=== PATIENT | female | born 1955 | race Caucasian/White ===

== ENCOUNTER 2022-05-16 09:41 | Observation (INO) | payer MEDICARE, OTHER, SELFPAY ==
[2022-05-16] VITALS (30 sets, daily range): BP systolic 73–139; BP diastolic 38–84; PULSE 77–92; RESP 14–27; TEMP 35.8–36.6; O2SAT 95–100; BMI 35.2
--- NOTE | ~2022-05-16 | CT_ITS ---
CT Abdomen and Pelvis with contrast. History: Renal infarct, colitis. Spiral CT of the abdomen and pelvis was performed after the administration of intravenous contrast. 1 00 cc of Omnipaque 350 was administered intravenously without complication. Dose reduction technique was used on this scan by utilizing automated exposure control and iterative reconstruction technique. The dose-length product (DLP) was 1210.32 mGy-cm. 05/16/2022 Findings: Scans through the lung bases demonstrate mild atelectatic change. The liver, spleen, pancreas, gallbladder, adrenals and right kidney are within normal limits. There i s an ill-defined hypodense area in the left renal cortex, less well-defined than on prior exam. No ev idence of aortic aneurysm. No lymphadenopathy is seen. There is no evidence of bowel obstruction. There is probable mild wall thickening and pericolonic inf lammatory stranding involving the proximal descending colon. No abscess or free air. Images through the pelvis were performed. Urinary bladder unremarkable. No adnexal mass evident. No a scites is seen. Impression: Findings consistent with infectious/inflammatory colitis involving the proximal descending colon. Hypodense area in the left kidney is more ill-defined as compared to prior exam, which could reflect evolving infarct versus possibly pyonephritis. Reviewed, dictated and finalized at [facility]. [employer] Impression: Findings consistent with infectious/inflammatory colitis involving the proximal descending colon. Hypodense area in the left kidney is more ill-defined as compared to prior exam , which could reflect evolving infarct versus possibly pyonephritis.
--- NOTE | ~2022-05-16 | CT_ITS ---
EXAMINATION: CT abdomen pelvis w con DATE: 05/16/2022 14:32 INDICATION: Generalized abdominal pain. Nausea and vomiting. Diarrhea. TECHNIQUE: Computed tomography (CT) of the abdomen and pelvis was performed with 100 mL Omnipaque 350 intravenous contrast. Automated exposure control and iterative reconstruction technique were employe d. The dose-length product was 1259.68 mGy-cm. COMPARISON: None. FINDINGS: The visualized portions of the lung bases demonstrate mild atelectasis. No pleural effusion . The heart size is normal. No pericardial effusion. There is a small sliding hiatal hernia. There ar e cysts in the liver measuring up to 16 mm. The gallbladder is distended. There is a 7 mm hypodense m ass in the spleen, likely a benign mass such as granulomatous disease. The pancreas and adrenal gland s are normal. There are cysts in the kidneys measuring up to 3.5 cm on the right. There is a striated nephrogram involving the upper pole and mid zone of left kidney. 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 There is no significant stenosis of superior mesenteric artery, the renal arteries, or inferior mesenteric artery. The bladder is distended. A rectal tube is noted. There is wall thickening from t ransverse colon to sigmoid colon. The appendix is not visualized. There is trace pelvic ascites. Ther e are no pathologically enlarged lymph nodes. There is an umbilical hernia containing fat. There is m ild thoracic spondylosis and moderate lumbar spondylosis. IMPRESSION: 1. Striated nephrogram in left kidney, which may be secondary to infarcts or less likely pyelonephrit is. 2. Wall thickening from transverse colon to the sigmoid, consistent with colitis such as infectious c olitis or ischemic colitis. Reviewed, dictated and finalized at location [facility]. [facility]OR IMPRESSION: 1. Striated nephrogram in left kidney, which may be secondary to infarcts or le ss likely pyelonephritis. 2. Wall thickening from transverse colon to the sigmoid, consistent with coliti s such as infectious colitis or ischemic colitis.
[2022-05-16] MEDS: SODIUM CHLORIDE 0.9% IV 2,000 ML 999 ML IV CONT (10:01)
--- NOTE | 2022-05-16 10:32 | ECG_ITS ---
Measurements Intervals [place] Rate: 78 P: 64 W[place]: 204 QRS: 7 QRSD: 85 T: 9 QT: 447 QTc: 511 Interpretive Statements SINUS RHYTHM PROLONGED QT INTERVAL ABNORMAL ECG NO PREVIOUS ECG AVAILABLE FOR COMPARISON Electronically Signed On 05-16-2022 12:49:38 TRANSCRIPT EVALUATOR by Micah Barreto M.D.
[2022-05-16] MEDS: ONDANSETRON INJ 4 MG/2 ML VIAL IV PUSH ×2 (10:37→15:18)
[2022-05-16 11:09] LABS: Basophils Absolute Auto 0.1 K/mm3 (0.0-0.1); Basophils Percent Auto 0.3 % (0.2-1.2); Eosinophils Percent Auto 0.2 % (0-4.4); Hematocrit 46.2 % (37.0-47.0); Hemoglobin 15.4 g/dL (12.0-15.0); Immature Granulocyte Absolute 0.16 K/mm3 (0.00-0.031); Immature Granulocyte Percent A 0.9 % (0-0.5); Lymphocytes Absolute Auto 1.82 K/mm3 (0.9-3.2); Lymphocytes Percent Auto 10.6 % (18.3-44.2); Mean Corpuscular HGB Conc 33.3 g/dl (32-36); Mean Corpuscular Hemoglobin 31.3 pg (26-34); Mean Corpuscular Volume 93.9 fl (80-100); Mean Platelet Volume 9.1 fl (7.4-10.4); Monocytes Absolute Auto 1.2 K/mm3 (0.1-0.6); Monocytes Percent Auto 6.8 % (2.6-8.5); Neutrophils Absolute Auto 13.9 K/mm3 (1.3-6.7); Neutrophils Percent Auto 81.2 % (45.5-73.1); Platelet Count Result 342 k/mm3 (150-375); Red Blood Count 4.92 M/mm3 (4.2-5.4); Red Cell Distribution Width 13.2 % (11.5-14.5); White Blood Count 17.1 K/mm3 (4.5-10.0)
[2022-05-16 11:29] LABS: Alanine Aminotransferase 20 U/L (6-35); Albumin Level 3.6 g/dL (3.5-5.1); Alkaline Phosphatase 63 U/L (38-126); Anion Gap 8 mmol/L (8-16); Aspartate Amino Transferase 30 U/L (14-36); Bilirubin,Total 1.2 mg/dL (0.2-1.3); Blood Urea Nitrogen 9 mg/dL (7-17); Carbon Dioxide 20 mmol/L (22-30); Chloride 102 mmol/L (98-107); Estimated CRCL calculation 70 ml/min; Estimated Glomerular Filt Rate > 60; Glucose 147 mg/dL (65-110); Lipase 68 U/L (23-300); Potassium 3.6 mmol/L (3.4-5.0); Sodium 130 mmol/L (137-145)
[2022-05-16 12:02] LABS: Toxigenic C. Diff NEGATIVE (NEGATIVE)
[2022-05-16 12:07] LABS: Lactic Acid Reflex 2.8 mmol/L (0.7-2.0)
[2022-05-16] MEDS: DICYCLOMINE HCL INJ 20 MG/2 ML VIAL IM (12:35)
--- NOTE | 2022-05-16 14:05 | ED.NAVMDI ---
HPI - Nausea/Vomiting/Diarrhea General Chief complaint: Nausea/Vomiting/Diarrhea Stated complaint: N/V/D Time Seen by Provider: 05/16/22 09:54 History of Present Illness HPI Narrative: Patient is a 66-year-old female who presents ER with diarrhea. Sudden onset this morning. Has had multiple episodes of diarrhea. Became profoundly fatigued and ended up having a syncopal episode while on the toilet. called EMS. Brought in by EMS with low blood pressure. Patient continues to have liquid stool that she cannot control. She has diffuse abdominal pain and aching. She is keenly alert and oriented and is able to provide history. Denies any recent antibiotic usage. No known sick contacts. Related Data Home Medications Medication Instructions Recorded Confirmed citalopram 40 mg tablet 40 mg PO DAILY 05/16/22 05/16/22 hydrochlorothiazide 12.5 mg capsule 12.5 mg PO DAILY 05/16/22 05/16/22 levothyroxine 100 mcg tablet 100 mcg PO DAILY 05/16/22 05/16/22 (Synthroid) lisinopril 40 mg tablet 40 mg PO DAILY 05/16/22 05/16/22 omeprazole 40 mg capsule,delayed 40 mg PO DAILY 05/16/22 05/16/22 release oxybutynin chloride 10 mg 10 mg PO DAILY 05/16/22 05/16/22 tablet,extended release 24 hr Allergies Allergy/AdvReac Type Severity Reaction Status Date / Time No Known Allergies Allergy Verified 05/16/22 10:06 Review of Systems Review of Systems: All systems reviewed & are unremarkable except as noted in HPI and below Constitutional: Constitutional: Denies chills, Reports fatigue and Denies fever(s) ENT: Denies nasal congestion and Denies sore throat Cardiovascular: Cardiovascular: Denies chest pain, Denies rapid heart rate and Denies radiating jaw, neck or arm pain Respiratory: Respiratory: Denies cough and Denies dyspnea Gastrointestinal: Gastrointestinal: Reports abdominal pain, Reports diarrhea, Denies nausea and Denies vomiting PMF Past Medical History Medical History (Updated 05/16/22 @ 19:52 by Angus Glover MD) Depression GERD (gastroesophageal reflux disease) Hypertension Hypothyroidism Family History Family History (Updated 05/16/22 @ 17:29 by Jayda Garcia RN) Mother Abdominal aneurysm, ruptured Father Heart attack Sibling Heart attack Sibling Parkinson disease Social History Social History Smoking status: Former smoker Tobacco type: cigarettes Alcohol intake: current Drinks per week: 12 Substance use: never Lack of Transportation: No Lack of Food: Never True Current Housing: I Have Housing Concerned About Future Housing: No Difficulty Paying Gas/Electric Bills: No Difficulty Paying for Meds: No Currently Unemployed: No Education: Decline to Answer Difficulty w/ Childcare or Family Care: No Spiritual care concerns: No Exam Narrative: GENERAL: Ill-appearing, obese, and in distress. HEAD: Normocephalic, atraumatic. EYES: PERRL and EOMI. ENT: Mucous membranes moist. CHEST: Clear to auscultation. No respiratory distress. HEART: Regular rate and rhythm. Normal peripheral pulses. ABDOMEN: Soft, diffuse tenderness without guarding, hyperactive bowel sounds.. EXTREMITIES: Normal range of motion. No edema. SKIN: Warm, dry, no rash. NEURO: Alert and oriented x3. PSYCH: Normal mood and affect. Course Course Emergency Course: 1405: Patient requiring fecal containment device due to persistent diarrhea. Patient still having abdominal discomfort. C. difficile negative. We will perform a CT scan of the abdomen pelvis. Patient will require admission to the hospital. Patient aggressively hydrated and proved to be fluid responsive. 1438: Excepted for admission by hospitalist service. GI was also consulted. Patient be started on IV Zosyn for infection. 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 Patient does not seem to have pain out of proportion to exam. Suspect she could have some ischemia related to a lo
[2022-05-16] MEDS: MORPHINE SULFATE (*CRX) 4 MG/ML INJ IV PUSH (14:40)
[2022-05-16 14:53] LABS: Reflex Lactic Acid Yes or No Add Lactic
[2022-05-16] MEDS: LACTATED RINGERS 1,000 ML 125 ML IV CONT ×2 (15:18→20:56)
[2022-05-16 15:41] LABS: Appearance Urine Clear (Clear); Bilirubin Urine 1+ (Negative); Blood Urine Trace-intact (Negative); Color Urine Dark Yellow (Yellow); Glucose Urine UA Negative (Negative); Ketones Urine 1+ mg/dL (Negative); Leukocyte Esterase Ur Negative LEU/UL (Negative); Nitrate Urine Negative (Negative); Protein Urine 1+ mg/dL (Negative); Specific Grav Ur 1.015 (1.001-1.035); pH Urine 7.5 (5.0-9.0)
[2022-05-16 15:46] LABS: Lactic Acid 1.7 mmol/L (0.7-2.0)
[2022-05-16 15:49] LABS: Bacteria Urine Trace /hpf; Mucus Urine Rare /lpf; RBC Urine 0-2 /hpf (0-2); Squamous Epithelial Cell Urine Rare /hpf (Few); WBC Urine 0-3 /hpf
[2022-05-16 15:56] LABS: Add Urine Microscopic? YES
--- NOTE | 2022-05-16 16:00 | PM.IMHP ---
H&P: HPI History of Present Illness Date/Time: 05/16/22 16:00 Chief Complaint: Diarrhea. Narrative: This is a very pleasant 66-year-old female with hypertension, hypothyroidism, gastroesophageal reflux disease, and depression who presented to the emergency department via EMS from home for evaluation of diarrhea. Patient provides the following history. She felt just fine when she got out of bed this morning and she made her sausage and eggs for breakfast. She does not usually eat breakfast but had 2 cups of coffee. Not long thereafter she developed diffuse, severe abdominal cramping and she rushed to the bathroom where she had profuse diarrhea for upwards of 30 minutes. With all of the diarrhea she started to feel weak, lightheaded, and dizzy and she called out for her who came into the bathroom and caught her as she lost consciousness briefly. She was also feeling extremely nauseated and sweaty. She continued to have large amounts of diarrhea in the ED and a fecal management system has since been inserted. She denies recent travel, antibiotic use, and sick contacts. She cooked hamburger couple of nights ago but she is always very careful about washing her hands. Blood pressure was as low as 73/38 in the emergency department but they have responded nicely to IV fluid rehydration. She has been afebrile since arrival. Pertinent labs included WBC count of 17.1, hemoglobin 15.4, sodium 130, carbon dioxide 20, lactic acid 2.8, and normal LFTs. CT of the abdomen and pelvis showed striated nephrogram in the left kidney which may be secondary to infarct or less likely pyelonephritis as well as wall thickening from the transverse colon to the sigmoid consistent with colitis such as infectious or ischemic colitis. She has not had any urinary symptoms and she denies back pain and there is no CVA tenderness on exam. She has not noticed any blood in the stool. She has no known history of cardiac dysrhythmia but admits that over the last 8 months or so she has had 1 to 2 episodes a week of brief, transient palpitations which seem to last less than a minute and occur more frequently with rest and lying in bed at night. At the time my evaluation she is feeling better with IV fluids. She has been started on antibiotics for possible infectious colitis and she is being admitted in this setting. Review of Systems Review of Systems: Twelve systems were reviewed. No fever. She denies cold and flu symptoms. She has not had exertional chest pain or shortness of breath. No melena or hematochezia. She denies dysuria. No neurologic symptoms. Except as documented, all other systems were reviewed and are negative. [facility] Past Medical History Medical History (Updated 05/16/22 @ 21:50 by Yamel Myers PA-C) Depression Gastroesophageal reflux disease Hypertension Hypothyroidism Overactive bladder Surgical History Surgical History (Updated 05/16/22 @ 21:47 by Yamel Myers PA-C) No history of previous surgery Family History Family History Mother Abdominal aneurysm, ruptured Father Heart attack Sibling Heart attack Sibling Parkinson disease Social History Social History (Updated 05/16/22 @ 21:48 by Yamel Myers PA-C) Social History: Surrogate medical decision maker: Rubin Rodriguez, spouse. Code status: Full code. Years smoked: 10 Smoking status: Former smoker Tobacco type: cigarettes Alcohol intake: current Drinks per week: 12 Alcohol use details: 1 to 2 mixed drinks a night (equivalent of 2 shots of vodka). Substance use: never Lack of Transportation: No Lack of Food: Never True Current Housing: I Have Housing Concerned About Future Housing: No Difficulty Paying Gas/Electric Bills: No Difficulty Paying for Meds: No Currently Unemployed: No Education: Decline to Answer Difficulty w/ Childcare or Family Care: No
[2022-05-16 22:56] LABS: Anion Gap 4 mmol/L (8-16); Blood Urea Nitrogen 8 mg/dL (7-17); Carbon Dioxide 26 mmol/L (22-30); Chloride 99 mmol/L (98-107); Estimated CRCL calculation 85 ml/min; Estimated Glomerular Filt Rate > 60; Glucose 114 mg/dL (65-110); Magnesium 1.8 mg/dL (1.6-2.3); Potassium 3.6 mmol/L (3.4-5.0); Sodium 129 mmol/L (137-145)
[2022-05-17] VITALS (20 sets, daily range): BP systolic 115–155; BP diastolic 65–84; PULSE 60–90; RESP 18–22; TEMP 36.2–36.8; O2SAT 95–99
[2022-05-17 00:02] LABS: Influenza A QL RT-PCR Negative (Negative); Influenza B QL RT-PCR Negative (Negative); SARS-CoV-2 RNA PCR Negative
[2022-05-17 04:33] LABS: Hematocrit 35.7 % (37.0-47.0); Hemoglobin 12.1 g/dL (12.0-15.0); Mean Corpuscular HGB Conc 33.9 g/dl (32-36); Mean Corpuscular Hemoglobin 31.7 pg (26-34); Mean Corpuscular Volume 93.5 fl (80-100); Mean Platelet Volume 8.6 fl (7.4-10.4); Platelet Count Result 262 k/mm3 (150-375); Red Blood Count 3.82 M/mm3 (4.2-5.4); Red Cell Distribution Width 13.4 % (11.5-14.5); White Blood Count 8.2 K/mm3 (4.5-10.0)
[2022-05-17 04:45] LABS: Alanine Aminotransferase 25 U/L (6-35); Albumin Level 3.4 g/dL (3.5-5.1); Alkaline Phosphatase 46 U/L (38-126); Anion Gap 3 mmol/L (8-16); Aspartate Amino Transferase 33 U/L (14-36); Bilirubin,Total 0.9 mg/dL (0.2-1.3); Blood Urea Nitrogen 6 mg/dL (7-17); Calcium 7.6 mg/dL (8.4-10.2); Carbon Dioxide 26 mmol/L (22-30); Chloride 103 mmol/L (98-107); Estimated CRCL calculation 85 ml/min; Estimated Glomerular Filt Rate > 60; Glucose 98 mg/dL (65-110); Magnesium 1.9 mg/dL (1.6-2.3); Potassium 3.6 mmol/L (3.4-5.0); Sodium 132 mmol/L (137-145)
[2022-05-17] MEDS: LEVOTHYROXINE SODIUM 100 MCG TABLET PO (06:15)
[2022-05-17] MEDS: CITALOPRAM HYDROBROMIDE 20 MG TABLET 40 MG PO (10:09)
[2022-05-17] MEDS: PANTOPRAZOLE 40 MG TABLET PO (10:09)
[2022-05-17] MEDS: SODIUM CHLORIDE 0.9% IV 1,000 ML 100 ML IV CONT ×3 (10:58→21:14)
--- NOTE | 2022-05-17 11:45 | P.PNIM_ITS ---
Progress Note: A&P Assessment and Plan (1) Colitis: Code(s): K52.9 - Noninfective gastroenteritis and colitis, unspecified Status: Acute Assessment and Plan: Presented with abdominal pain and profuse diarrhea ongoing for 1 day * CT of the abdomen and pelvis showed colitis from the transverse to the sigmoid colon. * Infectious colitis most likely etiology. Continue IV Zosyn * Stool cultures are pending * C diff PCR negative * Continue with supportive care * Continue gentle IV fluid rehydration until patient is better tolerating diet * Ischemic colitis considered given findings of celiac stenosis, however less likely. Lactic acid minimally elevated (2.8) but promptly normalized with rehydration. No significant pain. No significant stenosis was noted of the SMA, renal arteries, or inferior mesenteric artery. * No findings to suspect inflammatory colitis and patient is improving with IV antibiotics * Consider GI consultation if worsening (2) Sepsis: Code(s): A41.9 - Sepsis, unspecified organism Status: Acute Assessment and Plan: Patient met sepsis criteria on presentation with leukocytosis (17.0), tachypnea, relative hypotension, elevated lactic acid level and suspected source of infection of colitis. * Improving. WBC has normalized and patient is not tachypneic * Blood pressures have improved with rehydration. See below * Will obtain blood cultures (not obtained prior to initiation of antibiotics) * Blood cultures are pending * Continue with IV antibiotics as above (3) Hypotension: Code(s): I95.9 - Hypotension, unspecified Status: Acute Assessment and Plan: Secondary to volume loss and sepsis * Blood pressure was as low as 73/38 on presentation but responded well to IV fluid rehydration * BP is now in the 140s systolic and maintaining * Lisinopril and hydrochlorothiazide placed on hold * Will monitor today and if BP becomes elevated will resume. If remaining stable, plan to resume p.o. antihypertensives tomorrow morning (4) Dehydration: Code(s): E86.0 - Dehydration Status: Acute Assessment and Plan: Secondary to hypovolemia from GI losses * Patient received IV fluid resuscitation with improvement * Continue with gentle IV fluids today until better tolerating diet (5) Abnormal finding of kidney: Code(s): R39.9 - Unspecified symptoms and signs involving the genitourinary system Status: Acute Assessment and Plan: CT showed a striated nephrogram in the left kidney which may represent infarcts or pyelonephritis. * Pyelonephritis seems less likely given exam findings and lack of urinary symptoms. No CVA tenderness on exam. No flank pain. UA unremarkable. * Renal infarct is a possibility, however no obvious symptoms. No significant stenosis of renal arteries evident on CT. Patient does complain of palpitations, and is being evaluated for atrial fibrillation which could contribute to renal infarct. However patient remains in sinus rhythm and no findings of AFib as of yet. See plan as below. * Will plan for repeat CT of the abdomen and pelvis prior to discharge to evaluate. * Will plan to repeat UA in 24 hours to assess for infection or blood in the urine. * Hold on anticoagulation at this time (6) Palpitations: Code(s): R00.2 - Palpitations Status: Acute Assessment and Plan: Patient reported complaints of intermittent brief and self-limiting palpitations ongoing for several months to admitting provider * Denied palpitations during my encounte
--- NOTE | 2022-05-17 11:45 | PM.IMPN ---
Progress Note: A&P Assessment and Plan (1) Colitis: Code(s): K52.9 - Noninfective gastroenteritis and colitis, unspecified Status: Acute Assessment and Plan: Presented with abdominal pain and profuse diarrhea ongoing for [address] of the abdomen and pelvis showed colitis from the transverse to the sigmoid colon. Infectious colitis most likely etiology. Continue IV Zosyn Stool cultures are pending C diff PCR negative Continue with supportive care Continue gentle IV fluid rehydration until patient is better tolerating diet Ischemic colitis considered given findings of celiac stenosis, however less likely. Lactic acid minimally elevated (2.8) but promptly normalized with rehydration. No significant pain. No significant stenosis was noted of the SMA, renal arteries, or inferior mesenteric artery. No findings to suspect inflammatory colitis and patient is improving with IV antibiotics Consider GI consultation if worsening (2) Sepsis: Code(s): A41.9 - Sepsis, unspecified organism Status: Acute Assessment and Plan: Patient met sepsis criteria on presentation with leukocytosis (17.0), tachypnea, relative hypotension, elevated lactic acid level and suspected source of infection of colitis. Improving. WBC has normalized and patient is not tachypneic Blood pressures have improved with rehydration. See below Will obtain blood cultures (not obtained prior to initiation of antibiotics) Blood cultures are pending Continue with IV antibiotics as above (3) Hypotension: Code(s): I95.9 - Hypotension, unspecified Status: Acute Assessment and Plan: Secondary to volume loss and sepsis Blood pressure was as low as 73/38 on presentation but responded well to IV fluid rehydration BP is now in the 140s systolic and maintaining Lisinopril and hydrochlorothiazide placed on hold Will monitor today and if BP becomes elevated will resume. If remaining stable, plan to resume p.o. antihypertensives tomorrow morning (4) Dehydration: Code(s): E86.0 - Dehydration Status: Acute Assessment and Plan: Secondary to hypovolemia from GI losses Patient received IV fluid resuscitation with improvement Continue with gentle IV fluids today until better tolerating diet (5) Abnormal finding of kidney: Code(s): R39.9 - Unspecified symptoms and signs involving the genitourinary system Status: Acute Assessment and Plan: CT showed a striated nephrogram in the left kidney which may represent infarcts or pyelonephritis. Pyelonephritis seems less likely given exam findings and lack of urinary symptoms. No CVA tenderness on exam. No flank pain. UA unremarkable. Renal infarct is a possibility, however no obvious symptoms. No significant stenosis of renal arteries evident on CT. Patient does complain of palpitations, and is being evaluated for atrial fibrillation which could contribute to renal infarct. However patient remains in sinus rhythm and no findings of AFib as of yet. See plan as below. Will plan for repeat CT of the abdomen and pelvis prior to discharge to evaluate. Will plan to repeat UA in 24 hours to assess for infection or blood in the urine. Hold on anticoagulation at this time (6) Palpitations: Code(s): R00.2 - Palpitations Status: Acute Assessment and Plan: Patient reported complaints of intermittent brief and self-limiting palpitations ongoing for several months to admitting provider Denied palpitations during my encounter today Differential diagnosis includes paroxysmal atrial fibrillation Patient has been monitored on telemetry and maintains normal sinus rhythm Echocardiogram is pending Consider discharge with 30 day event monitor if no findings from above workup (7) Hypertension: Code(s): I10 - Essential (primary) hypertension Status: Chronic Assessment and Plan: Patient with history
[2022-05-17] MEDS: ACETAMINOPHEN 325 MG TABLET 650 MG PO (21:10)
--- NOTE | 2022-05-17 21:58 | ECHO_ITS ---
Patient Info Name: Nikita Rodriguez Age: 66 years : 1955 Gender: Female Ht: 67 in Wt: 224 lbs BSA: 2.23 m2 HR: 71 bpm BP: 129 / 65 mmHg Heart Rhythm: Sinus Rhythm Technical Quality: Fair Exam Date: 05/17/2022 7:57 AM Exam Location: [facility] Patient Status: Outpatient Admit Date: 05/16/2022 Staff Ordering Physician: Yamel Myers PA-C Environmental Law Professor: Asha Conrad RDCS Attending Provider: Gini Velasco PA-C Referring Physician: Louis KO; Exam Type: CA echo doppler color flow Study Info Indications I10 - Essential (primary) hypertension - possible renal infarct R00.2 - Palpitations Complete two-dimensional, color flow and Doppler transthoracic echocardiogram is performed. Summary 1. Complete two-dimensional, color flow and Doppler transthoracic echocardiogram is performed. 2. Left ventricular chamber dimension is normal. 3. Left ventricular systolic function is normal, estimated at 65-70%. 4. There is no increased left ventricular wall thickness. 5. The left ventricular diastolic function is grade I diastolic dysfunction. 6. Left atrial chamber dimension is mildly enlarged. 7. There is mild mitral valve regurgitation. 8. There is mild tricuspid valve regurgitation. Left Ventricle Left ventricular chamber dimension is normal. Left ventricular systolic function is normal, estimated at 65-70%. There is no increased left ventricular wall thickness. The left ventricular diastolic function is grade I diastolic dysfunction. Right Ventricle Right ventricular chamber dimension is normal. Right ventricular systolic function is normal. Left Atria Left atrial chamber dimension is mildly enlarged. Right Atria Right atrial chamber dimension is normal. Atrial Septum Intact interatrial septum visualized by color flow imaging. Aortic Valve The aortic valve is trileaflet. There is mild aortic valve sclerosis. There is no aortic valve stenosis. There is trace aortic valve regurgitation. Pulmonic Valve The pulmonic valve is normal. There is no pulmonic valve stenosis. There is trace pulmonic regurgitation. Mitral Valve The mitral valve has normal leaflets. There is no mitral valve stenosis. There is mild mitral valve regurgitation. Tricuspid Valve The tricuspid valve leaflets are normal. There is no significant tricuspid valve stenosis. There is mild tricuspid valve regurgitation. No pulmonary hypertension, estimated pulmonary arterial systolic pressure is 31 mmHg. Pericardium/Pleural The pericardium appears normal. There is no pericardial effusion. Inferior Vena Cava Normal inferior vena cava with >50% collapse upon inspiration consistent with normal right atrial pressure, 10 mmHg. Aorta The aortic root size at the sinus of Valsalva is normal. The prox ascending aorta size is normal. Left Ventricular Outflow Tract Name Value Normal LVOT 2D LVOT Diameter 2.0 cm LVOT Doppler LVOT Peak Gradient 4 mmHg LVOT Mean Gradient 2 mmHg LVOT VTI 23
[2022-05-18] VITALS (8 sets, daily range): BP systolic 121–152; BP diastolic 71–82; PULSE 64–76; RESP 16–18; TEMP 36.3–36.7; O2SAT 97–100
[2022-05-18 05:25] LABS: Alanine Aminotransferase 32 U/L (6-35); Albumin Level 3.6 g/dL (3.5-5.1); Alkaline Phosphatase 46 U/L (38-126); Anion Gap 4 mmol/L (8-16); Aspartate Amino Transferase 36 U/L (14-36); Bilirubin,Total 0.9 mg/dL (0.2-1.3); Blood Urea Nitrogen 2 mg/dL (7-17); Calcium 7.8 mg/dL (8.4-10.2); Carbon Dioxide 28 mmol/L (22-30); Chloride 105 mmol/L (98-107); Estimated CRCL calculation 97 ml/min; Estimated Glomerular Filt Rate > 60; Glucose 91 mg/dL (65-110); Potassium 3.2 mmol/L (3.4-5.0); Sodium 137 mmol/L (137-145)
[2022-05-18] MEDS: LEVOTHYROXINE SODIUM 100 MCG TABLET PO (05:33)
[2022-05-18] MEDS: lisinopriL 20 MG TABLET 40 MG PO (08:51)
[2022-05-18] MEDS: CITALOPRAM HYDROBROMIDE 20 MG TABLET 40 MG PO (08:51)
[2022-05-18] MEDS: PANTOPRAZOLE 40 MG TABLET PO (08:52)
[2022-05-18] MEDS: hydroCHLOROthiazide 12.5 MG CAPSULE PO (08:52)
[2022-05-18 12:15] LABS: Lactate Dehydrogenase 271 U/L (120-246)
[2022-05-18 13:49] LABS: Appearance Urine Clear (Clear); Bilirubin Urine Negative (Negative); Blood Urine Trace-lysed (Negative); Color Urine Yellow (Yellow); Glucose Urine UA Negative (Negative); Ketones Urine Negative (Negative); Leukocyte Esterase Ur Negative LEU/UL (Negative); Nitrate Urine Negative (Negative); Protein Urine Negative (Negative); Urobilinogen Urine 0.2 mg/dL (<2.0)
[2022-05-18 13:53] LABS: Mucus Urine Rare /lpf; RBC Urine 0-2 /hpf (0-2); WBC Urine 0-3 /hpf
[2022-05-18 14:02] LABS: Add Urine Microscopic? YES
--- NOTE | 2022-05-18 14:26 | PM.DS ---
DS: Admitting Diagnosis Discharge Date 05/18/2022 1435 Admitting Diagnosis Noninfective gastroenteritis and colitis, unspecified Hypotension, unspecified Dehydration Abnormal finding of kidney on CT scan Essential (primary) hypertension Hypothyroidism, unspecified Gastro-esophageal reflux disease without esophagitis DS: Discharge Diagnosis Discharge Diagnosis (1) Sepsis: Code(s): A41.9 - Sepsis, unspecified organism Status: Acute Assessment and Plan: present on admission (2) Colitis: Code(s): K52.9 - Noninfective gastroenteritis and colitis, unspecified Status: Acute (3) Hypotension: Qualifiers: Hypotension type: hypotension due to hypovolemia Qualified Code(s): I95.89 - Other hypotension; E86.1 - Hypovolemia Code(s): I95.9 - Hypotension, unspecified Status: Acute (4) Dehydration: Code(s): E86.0 - Dehydration Status: Acute (5) Palpitations: Code(s): R00.2 - Palpitations Status: Acute (6) Hypertension: Qualifiers: Hypertension type: primary hypertension Qualified Code(s): I10 - Essential (primary) hypertension Code(s): I10 - Essential (primary) hypertension Status: Chronic (7) Hypothyroidism: Qualifiers: Hypothyroidism type: unspecified Qualified Code(s): E03.9 - Hypothyroidism, unspecified Code(s): E03.9 - Hypothyroidism, unspecified Status: Chronic (8) Infarction of kidney: Code(s): N28.0 - Ischemia and infarction of kidney Status: Acute (9) Gastroesophageal reflux disease: Qualifiers: Esophagitis presence: without esophagitis Qualified Code(s): K21.9 - Gastro-esophageal reflux disease without esophagitis Code(s): K21.9 - Gastro-esophageal reflux disease without esophagitis Status: Chronic DS: Summary Hospital Course Reason for hospitalization: diarrhea Hospital Course: Nikita Rdoriguez is a 66-year-old female with a history of hypertension, hypothyroidism, GERD, and overactive bladder who presented to the ED for evaluation of diarrhea. CT scan was consistent with colitis.?She was admitted to the medical floor for IV antibiotics and supportive care. ? (1) Colitis Presented with abdominal pain and profuse diarrhea ongoing for [address] of the abdomen and pelvis showed colitis from the transverse to the sigmoid colon. Infectious colitis most likely etiology.? Treated with IV Zosyn, first dose 05/16/22. Transitioned to oral Augmentin 875/125 mg PO BID on 05/18/22 and to continue for approximately 8 more days for 10-day total antibiotic course. Stool cultures negative for cryptosporidium, giardia, shiga, salmonella, and shigella negative. Camphylobacter pending. C diff PCR negative Continue with supportive care Treated with gentle IV fluid rehydration until patient is better tolerating diet Ischemic colitis considered given findings of celiac stenosis, however less likely.? Lactic acid minimally elevated (2.8) but promptly normalized with rehydration. No significant pain. No significant stenosis was noted of the SMA, renal arteries, or inferior mesenteric artery. No findings to suspect inflammatory colitis and patient is improving with IV antibiotics (2) Sepsis Patient met sepsis criteria on admission with leukocytosis (17.0), tachypnea, relative hypotension, elevated lactic acid level and suspected source of infection of colitis. Improving.? WBC has normalized and patient is not tachypneic Blood pressures have improved with rehydration.? See below Blood cultures negative to date, although were obtained after initiation of antibiotics. Continued on antibiotics therapy. (3) Hypotension Secondary to volume loss and sepsis Blood pressure was as low as 73/38 on presentation but responded well to IV fluid rehydration BP improved to 140s systolic Lisinopril and hydrochlorothiazide placed on hold on admission but resumed prio
[2022-05-23 23:33] LABS: PS/PT AB IgM 13 U (<=30)
[2022-05-25 03:14] LABS: Anti Cardio Antibody IgM <2.0 MPL-U/mL (<20.0); Anti Cardiolipin Antibody IgA <2.0 APL-U/mL (<20.0); Anti Cardiolipin Antibody IgG <2.0 GPL-U/mL (<20.0)
[2022-05-25 22:42] LABS: Factor V (Leiden) Mutation NEGATIVE
== END 2022-05-18 14:55 | disposition home or self-care (01) ==
LOC: ANHED 13:55 → ANHIMU 19:52
PROVIDERS: Nurse Practitioner Family; Physician Assistant; Admitting Provider Family Medicine; Emergency Provider Emergency Medicine; Visit Provider Physician Assistant
DX: K52.9 Noninfective gastroenteritis and colitis, unspecified (principal); A41.9 Sepsis, unspecified organism; I95.9 Hypotension, unspecified; E86.0 Dehydration; R39.9 Unspecified symptoms and signs involving the genitourinary system; R00.2 Palpitations; I10 Essential (primary) hypertension; E03.9 Hypothyroidism, unspecified; K21.9 Gastro-esophageal reflux disease without esophagitis; N28.0 Ischemia and infarction of kidney; F32.A Depression, unspecified; Z20.822 Contact with and (suspected) exposure to COVID-19; I08.1 Rheumatic disorders of both mitral and tricuspid valves; R94.31 Abnormal electrocardiogram [ECG] [EKG]; R53.83 Other fatigue; R55 Syncope and collapse; E66.9 Obesity, unspecified; Z68.35 Body mass index [BMI] 35.0-35.9, adult; Z87.891 Personal history of nicotine dependence; F10.90 Alcohol use, unspecified, uncomplicated; Z79.899 Other long term (current) drug therapy
CPT/HCPCS: 36415; 51701; 74177; 80048; 80053; 81001; 81241; 83605; 83615; 83690; 83735; 84443; 85025; 85027; 85303; 85306; 86146; 87040; 87045; 87269; 87272; 87427; 87493; 87636; 89055; 93005; 93306; 96361; 96365; 96366; 96367; 96372; 96375; 96376; 99285; A9270; G0378; J0131; J0500; J2270; J2405; J2543; J7030; J7120; Q9967